=== PATIENT | female | born 1965 | race African-American/Black ===

== ENCOUNTER 2017-05-30 01:08 | Emergency (ER) | payer OTHER, MEDICAID ==
[~2017-05-30] VITALS: Ht 152.4 cm; Wt 94.0 kg
[~2017-05-30 01:08] MED LIST: ATOR40TA70; FLUTICASONE; METFORMIN; MONT10TA24; MOTRIN; QVAR
[2017-05-30 04:52] VITALS: BP 152/91
[2017-05-30] MEDS ORDERED: IBUPROFEN 800MG TABLET PO ONE (06:15)
== END 2017-05-30 07:02 | disposition home or self-care (01) ==
LOC: ER 01:08
DX: R51 Headache (principal); J45.909 Unspecified asthma, uncomplicated; I10 Essential (primary) hypertension; E11.9 Type 2 diabetes mellitus without complications; Z88.0 Allergy status to penicillin; V43.62XA Car passenger injured in collision with other type car in traffic accident, initial encounter; Y93.89 Activity, other specified; Y92.89 Other specified places as the place of occurrence of the external cause; Y99.8 Other external cause status
CPT/HCPCS: 99283